=== PATIENT | female | born 1985 | race Caucasian/White ===

== ENCOUNTER 2017-11-25 20:31 | Inpatient (IN) | payer BC, OTHER ==
[~2017-11-25] VITALS: Ht 170.2 cm; Wt 61.4 kg
[~2017-11-25 20:31] MED LIST: AMPHETAMINE SAL10 MG PO; ATARAX,VISTARIL25 MG PO; NAPROSYN500 MG PO
[2017-11-25] MEDS ORDERED: ADDERALL XR 1010 MG PO (22:15)
[2017-11-25] MEDS ORDERED: PROZAC20 MG PO (22:15)
[2017-11-25 22:50] LABS: AMPHETAMINE NEGATIVE (500 ng/mL); BARBITURATES NEGATIVE (200 ng/mL); BENZODIAZEPINES PRESUMPTIVE POSITIVE (150 ng/mL); BUPRENORPHINE NEGATIVE (10 ng/mL); COCAINE NEGATIVE (150 ng/mL); METHADONE NEGATIVE (200 ng/mL); METHAMPHETAMINE NEGATIVE (500 ng/mL); OPIATES (MORPHINE) NEGATIVE (100 ng/mL); OXYCODONE NEGATIVE (100 ng/mL); PHENCYCLIDINE NEGATIVE (25 ng/mL); PROPOXYPHENE NEGATIVE (300 ng/mL); THC CANNABINOIDS PRESUMPTIVE POSITIVE (50 ng/mL); TRICYCLIC ANTIDEPRESSANTS NEGATIVE (300 ng/mL)
[2017-11-25 22:52] LABS: CHLORIDE 107 mEq/L (99-109); POTASSIUM 3.6 mEq/L (3.7-5.4); SODIUM 140 mEq/L (136-147)
[2017-11-25 22:54] LABS: GLUCOSE 101 mg/dL (70-99); HEMATOCRIT 39.2 % (36.0-46.0); HEMOGLOBIN 13.1 G/DL (11.9-15.5); MCH 28.9 PG (29.0-34.0); MCHC 33.4 G/DL (30.0-36.0); MCV 86.5 FL (83-99); RBC DIS.WIDTH-CV 12.3 % (11.8-14.6); RBC DIS.WIDTH-SD 39.1 % (39-53); RED BLOOD COUNT 4.53 M/uL (3.80-5.20); WHITE BLOOD COUNT 10.4 K/uL (4.1-10.2)
[2017-11-25 22:57] LABS: SERUM ETHYL ALCOHOL < 10 mg/dL
[2017-11-25 22:58] LABS: CREATININE 0.8 mg/dL (0.6-1.3); GFR ESTIMATE (CALCULATED) > 59 mL/min/
[2017-11-25 23:00] LABS: UREA NITROGEN (BUN) 14 mg/dL (9-23)
[2017-11-25 23:01] LABS: ACETAMINOPHEN (TYLENOL) < 10 mcg/mL (10-30); SALICYLATE < 5.0 MG/DL (15-30)
[2017-11-26 02:31] VITALS: BP 96/54
[2017-11-26 02:49] LABS: BENZODIAZEPINES, URINE SCREEN Negative (200 ng/mL)
[2017-11-26 03:24] LABS: PLAT.SUFFICIENCY ADEQUATE; PLATELET COUNT 251 K/uL (156-360)
[2017-11-26 08:02] VITALS: BP 103/50
[2017-11-26 16:07] VITALS: BP 102/51
[2017-11-27 08:00] VITALS: BP 118/69
[2017-11-27] MEDS ORDERED: PROZAC40 MG PO (09:01)
[2017-11-27] MEDS ORDERED: BUPROPION XL150 MG PO (09:02)
[2017-11-27] MEDS ORDERED: HYDROXYZINE PAM25 MG PO (09:02)
[2017-11-27] MEDS ORDERED: ADDERALL XR 2020 MG PO (09:03)
== END 2017-11-27 11:25 | disposition home or self-care (01) | DRG 885 ==
LOC: EME 20:31 → EDOF 21:55 → 1WEST 21:55 → ENRESERV 23:26 → 1WEST 23:33
PROVIDERS: Emergency Medicine
DX: F33.2 Major depressive disorder, recurrent severe without psychotic features (principal); R45.851 Suicidal ideations; F12.10 Cannabis abuse, uncomplicated; F41.9 Anxiety disorder, unspecified; F90.1 Attention-deficit hyperactivity disorder, predominantly hyperactive type; Z56.0 Unemployment, unspecified
CPT/HCPCS: 80048; 84999; 85027; 90839; 99281; 99284; G0480; Q0177